=== PATIENT | male | born 2005 | race Caucasian/White ===

== ENCOUNTER 2024-04-09 06:34 | Emergency (ER) | payer BC, SELFPAY ==
[2024-04-09 06:37] VITALS: BP 111/84
[2024-04-09 07:24] VITALS: BP 98/86
[2024-04-09 07:26] VITALS: BMI 32.1
[2024-04-09 07:27] LABS: COVID-19 Antigen Negative (Negative)
--- NOTE | 2024-04-09 07:33 | ED.GENMED ---
History of Present Illness
General
Chief Complaint: Abdominal Pain
Source: patient
Time Seen by Provider: 04/09/24 07:25
History of Present Illness
History of Present Illness:
19-year-old male with past medical history of ADHD presenting to the emergency department for evaluation of left upper abdominal pain/flank/lower back pain that began around 1 PM yesterday accompanied with nausea and vomiting and loose stool as well
as low-grade fever. Patient describes the pain to be waxing and waning, nonradiating, currently minimal and without any history of similar type pain. Patient did not take anything for symptoms prior to arrival. He denies any chest pain,
palpitations, shortness of breath, urinary symptoms or any other concerns. Patient did note a couple of days ago he started with a very faint cough but this seems to be somewhat improved. No known sick contacts however patient does note he works
at a [employer] so he does come in a cannot with a significant amount of people throughout the day. Social history was otherwise noncontributory.
Past History
Past History
ED Past Medical History: Psychiatric (ADHD)
ED Past Surgical History: Orthopedic
Social History
Tobacco: Non-smoker
Alcohol: Occasional
Drug: None
Personal: Single
Living: with family
Employment: Employed
Review of Systems
Review of Systems
All Other Systems: ROS reviewed and negative except as documented in HPI and ROS
Phy Exam
Physical Exam
Physical Exam:
GENERAL: Alert , in no apparent distress
EYE: clear conjunctiva b/l
HEAD: NCAT
ENT: o/p clr, mmm.
CARDIAC: Tachycardic rate and rhythm, no murmur
LUNGS: Clear breath sounds bilaterally, no acute respiratory distress, no wheezes/rales/rhonchi
ABDOMEN: Soft, without focal tenderness, no r/g, no cvat
NEUROLOGICAL: Alert and oriented
SKIN: Warm and dry, skin intact.
MUSCULOSKELETAL: No edema, well perfused.
PSYCH: Normal and appropriate interaction.
Scores
Heart Failure Risk
Heart Failure Risk Score: Not Applicable
Heart Score for Chest Pain Patients
STEMI patient?: Not applicable
Withdrawal Assessment of Alcohol
Withdrawal Assessment Completed?: Not applicable
Course
Orders/Labs/Results
Orders:
Orders
04/09/24 06:43
COVID-19 Antigen Urgent
Source: Nasal Swab
04/09/24 07:23
CMP [Comprehensive Metabolic Panel] Urgent
Complete Blood Count/No Diff Urgent
Lipase Urgent
04/09/24 07:32
CT Abd/pelvis W Iv Cont Urgent
Comment:
Reason For Exam: fever, left upper abd/flank pain
Ketorolac [Toradol] 30 mg IV NOW STA
04/09/24 08:10
0.9% Sodium Chloride 1000 ml [Nss] 1,000 ml IV BOLUS
04/09/24 10:29
Urinalysis Reflex To Culture Urgent
Date Specimen was Collected: 04/09/24
Time Specimen was Collected: 10:17
Abnormal Lab Results
04/09/24 04/09/24
07:23 10:29
Sodium 132 L mmol/L
(135-145)
Carbon Dioxide 20 L mmol/L
(22-30)
Total Bilirubin 2.8 H mg/dl
(0.2-1.3)
Urine Bilirubin 1+ A
(Negative)
04/09/24 07:23
04/09/24 07:23
Vital Signs
Initial and Last Documented VS:
Initial Vital Signs
Temp Pulse Resp BP Pulse Ox
100.8 F H 117 18 111/84 96
04/09/24 06:37 04/09/24 06:37 04/09/24 06:37 04/09/24 06:37 04/09/24 06:37
Last Documented Vital Signs
Temp Pulse Resp BP Pulse Ox
99.4 F 91 16 94/65 97
04/09/24 09:04 04/09/24 09:04 04/09/24 09:04 04/09/24 10:06 04/09/24 10:15
MDM/Problems Addressed
Differential Diagnosis Includes:
Viral syndrome, COVID/flu, urinary tract infection/pyelonephritis, renal/ureteral colic, GERD/gastritis
MDM/Problems Addressed:
19-year-old male presenting to the emergency department for evaluation of 1 day left upper quadrant/left flank abdominal pain accompanied with intermittent nausea vomiting and diarrhea, presently symptoms are under control. Patient had low-grade
fevers at home and has a fever of 100.8 on arrival here. Did not take anything for his fever. Toradol ordered for fever as well as pain control. Labs and COVID testing ordered. Will obtain CT scan to further evaluate to rule out any surgical
pathologies. Reassessment following.
*Radiology
Radiology exam reviewed: radiology read reviewed
*Pulse Oximetry
Patient hypoxic: no
*Destination Sign Repairer Interpretation
Rate: tachycardiac
Rhythm: sinus
*Critical Care Note
Total Time (30-74mins, 75-104mins- exclusive of procedures): Not Applicable
Patient Management
Escalation/DeEscalation of care consider admission/obs:
Patients CT shows mild splenomegaly which could be cause of his LUQ abdominal pain. Possible viral etiology. Considered mono however patient has history of this and labs do not seem to be consistent with this. Continue supportive care at home.
Discussed return precautions. Stable for discharge
ED Attending Note
-
Portions of this chart may have been created with voice recognition software.� Occasional wrong word or��sound alike� substitutions may have occurred due to the inherent limitations of voice recognition software.
Discharge Plan
Departure
Patient Disposition: Home (Routine Discharge)
Date of Disposition: 04/09/24
Time of Disposition: 10:47
Patient with high blood pressure during this ER visit?: No
Discharge Problem:
Abdominal pain, Acute viral syndrome
Instructions: Abdominal Pain
Prescriptions:
No Action
No Current Medications
0
Referrals:
UNKNOWN - PT DOES,NOT KNOW [Family Provider] -
Stand Alone Forms: Return to Work
Interventions
Interventions:
*Risk Screen - Suicide Last Done: 04/09/24 07:28
*Neglect/Abuse Screening Last Done: 04/09/24 07:28
ED- Fall Risk Assessment Last Done: 04/09/24 07:29
*ED COVID-19 Vaccine History Last Done: 04/09/24 07:27
*Nursing Disposition Last Done: 04/09/24 10:55
RJ-Ckoloz-Sacxxqaplp Assessment Last Done: 04/09/24 07:28
Discharge Date and Time
Discharge Date/Time: 04/09/24 10:56
Print Language: GERMAN
[2024-04-09] MEDS: TORADOL 30 MG IV (07:36)
[2024-04-09 07:39] LABS: Hematocrit 43.3 % (39.0-52.0); Hemoglobin 15.8 g/dL (13.0-18.0); Mean Corp Hgb Conc. 36.5 g/dL (33.0-37.0); Mean Corpuscular Hgb 29.8 pg (27.0-31.0); Mean Corpuscular Volume 81.7 fL (80.0-94.0); Mean Platelet Volume 9.6 fL (7.4-10.4); Platelet Count 186 10^3/uL (130-400); Red Cell Dist. Width 11.9 % (11.5-14.5); White Blood Cell Count 8.5 10^3/uL (4.8-10.8)
[2024-04-09 08:00] VITALS: BP 117/74
[2024-04-09 08:12] LABS: ALT (SGPT) 27 U/L (0-50); AST (SGOT) 22 U/L (17-59); Albumin 4.3 g/dl (3.5-5.0); Alkaline Phosphatase 97 U/L (38-126); Blood Urea Nitrogen 20 mg/dl (9-20); Calcium 9.6 mg/dl (8.4-10.2); Carbon Dioxide 20 mmol/L (22-30); Chloride 101 mmol/L (98-107); Estimated Creatinine Clearance > 125 ml/min; Glucose 98 mg/dl (70-99); Potassium 3.7 mmol/L (3.5-5.1); Sodium 132 mmol/L (135-145); Total Bilirubin 2.8 mg/dl (0.2-1.3); Total Protein 6.9 g/dl (6.3-8.2); eGFR > 60.00
[2024-04-09] MEDS: NSS 1000 IV (08:18)
[2024-04-09 08:34] LABS: Lipase 54 U/L (23-300)
[2024-04-09 09:01] VITALS: BP 116/63
[2024-04-09 10:06] VITALS: BP 94/65
[2024-04-09 10:44] LABS: Urine Albumin Trace (Neg - Trace); Urine Bilirubin 1+ (Negative); Urine Character Clear (Clear); Urine Color Yellow; Urine Glucose Negative (Negative); Urine Ketone Negative (Negative); Urine Leukocyte Negative (Negative); Urine Nitrite Negative (Negative); Urine Occult Blood Negative (Negative); Urine Specific Gravity 1.005 (<1.030); Urine Urobilinogen Negative (Neg - 1+)
== END 2024-04-09 10:56 | disposition home or self-care (01) ==
LOC: EMR 06:34
PROVIDERS: Physician Assistant Medical; EMERGENCY PHYSICIAN Emergency Medicine
DX: B34.9 Viral infection, unspecified (principal); R10.12 Left upper quadrant pain; R11.2 Nausea with vomiting, unspecified; R19.7 Diarrhea, unspecified; Z11.52 Encounter for screening for COVID-19; R16.1 Splenomegaly, not elsewhere classified; F90.9 Attention-deficit hyperactivity disorder, unspecified type; Z88.1 Allergy status to other antibiotic agents
CPT/HCPCS: 99285; 96361; 96374; 74177; 80053; 81003; 83690; 85027; 87811; Q9967

== ENCOUNTER 2024-05-24 05:14 | Emergency (ER) | payer BC, SELFPAY ==
[2024-05-24 05:16] VITALS: BP 138/92
--- NOTE | 2024-05-24 05:46 | EDRN ---
Pt was punching a bag with friends about 1 hour ago and now his R lateral hand hurts around 4th and 5th knuckle. No ice applied or pain medication taken prior to arrival.
--- NOTE | 2024-05-24 06:31 | ED.MUSCINJ ---
HPI-Injury
General
Chief Complaint: Musculo-Skeletal Complaint
Time Seen by Provider: 05/24/24 06:13
History of Present Illness-Injury
Initial Injury comments:
19-year-old male without significant past medical history presenting for right hand pain. Patient reports he was punching a punching bag about 3 hours prior to arrival and since that pain and bruising to his hand. Denies numbness or tingling.
Reports that he is able to move his hand, however pain with range of motion. Denies any fractures in the past to his hand. Denies any recent fever or illness. He did not take any medications for pain prior to arrival. Denies additional acute
medical complaints
Past History
Past History
ED Past Medical History: Psychiatric (ADHD)
ED Past Surgical History: Orthopedic
Social History
Tobacco: Non-smoker
Alcohol: Occasional
Drug: None
Personal: Single
Living: with family
Employment: Employed
Phy Exam
Physical Exam
Physical Exam:
General: Well-appearing, no clinical signs of dehydration, nontoxic and in no acute distress
HEENT: protecting airway
Neck: appears supple
CV: Normal heart rate
Resp: No accessory muscle use, no increased work of breathing
Abd: No distention
Extremities: Mild swelling ecchymosis to the right hand at the medial aspect of the metacarpals. Pain particularly to the base of the fifth metacarpal. Range of motion is grossly intact, pain elicited with range of motion testing. Distal
sensation intact
Neuro: alert, no focal neurologic deficit
: deferred
Rectal: deferred
Psych: Normal affect
Skin: Intact
Injury Course
Orders/Labs/Results
Orders:
Orders
05/24/24 05:18
Hand, Right 3 View [CR Hand - Right Min 3 Views] Urgent
Comment:
Reason For Exam: HITTING PUNCHING BAG
09/08/24 06:30
Ibuprofen [Motrin] 800 mg PO NOW STA
MDM/Problems Addressed
MDM/Problems Addressed:
19-year-old male without significant past medical history presenting for right hand pain after punching a punching bag 3 hours prior to arrival. Vital signs are normal.
On exam patient is well-appearing, no acute distress comfort. Patient does have some swelling and ecchymosis to the right hand, is right-hand dominant. No neurovascular compromise. No infectious findings. X-ray obtained prior to my testing,
consistent with a distal fifth metacarpal fracture, a boxer's fracture. Patient without significant displacement, without current need for reduction. Will place an ulnar gutter splint with plan for outpatient orthopedic follow-up. Ibuprofen
administered for pain. Otherwise feel stable for discharge with again close interval follow-up with orthopedics. Return precautions discussed and patient verbalized understanding
*Critical Care Note
Total Time (30-74mins, 75-104mins- exclusive of procedures): Not Applicable
ED Attending Note
-
Portions of this chart may have been created with voice recognition software.� Occasional wrong word or��sound alike� substitutions may have occurred due to the inherent limitations of voice recognition software.
Discharge Plan
Departure
Prescriptions:
No Action
No Current Medications
0
Referrals:
NONE,* [Family Provider] -
Interventions
Interventions:
*Risk Screen - Suicide Last Done: 05/24/24 05:16
*General Assessment Last Done: 05/24/24 05:44
*Neglect/Abuse Screening Last Done: 05/24/24 05:16
*ED COVID-19 Vaccine History Last Done: 05/24/24 05:44
ED-Musculoskeletal Assessment Last Done: 05/24/24 05:44
Discharge Date and Time
Print Language: SINHALA
[2024-05-24] MEDS: MOTRIN 800 MG PO (06:45)
== END 2024-05-24 07:17 | disposition home or self-care (01) ==
LOC: EMR 05:14
PROVIDERS: EMERGENCY PHYSICIAN Student in an Organized Health Care Education/Training Program
DX: S62.396A Other fracture of fifth metacarpal bone, right hand, initial encounter for closed fracture (principal); S60.221A Contusion of right hand, initial encounter; W22.8XXA Striking against or struck by other objects, initial encounter
CPT/HCPCS: 29125; 99283; 73130